=== PATIENT | female | born 1930 | race Caucasian/White ===

== ENCOUNTER 2017-05-03 14:46 | Inpatient (IN) | payer MEDICARE, OTHER ==
[~2017-05-03] VITALS: Ht 165.1 cm; Wt 77.6 kg
[2017-05-03 15:42] LABS: BASO % 0.3 % (0.0-2.0); EOS # 0.1 (0.0-0.7); GRAN # 8.6 (1.4-6.5); GRAN % 74.6 % (42.2-75.2); HEMATOCRIT 36.1 % (37.0-47.0); HEMOGLOBIN 12.2 g/dl (12.5-16.0); LYMPH # 1.9 (1.2-3.4); LYMPH % 16.7 % (20.0-51.0); MEAN CELL VOLUME 91 fl (80.0-100.0); MEAN CORPUSCULAR HEMOGLOBIN 31 pg (27.0-31.0); MEAN CORPUSCULAR HGB CONC 34 g/dl (33.0-37.0); MEAN PLATELET VOLUME 11.3 fl (7.4-10.4); MONO # 0.8 (0.1-0.6); MONO % 6.8 % (1.7-9.3); PLATELET COUNT 175 K/mm3 (130-400); RED BLOOD COUNT 3.99 M/mm3 (4.10-5.30); REDCELL DISTRIBUTION WIDTH-CV 13.2 % (11.5-14.5)
[2017-05-03 15:53] LABS: BILIRUBIN,TOTAL 0.6 mg/dL (0.0-1.0); CALCIUM 10.1 mg/dL (8.4-10.2); CREATININE, serum 1.27 mg/dL (0.52-1.25); POTASSIUM 4.8 mmol/L (3.4-5.0); TOTAL PROTEIN 7.2 gm/dL (6.4-8.2)
[2017-05-03 16:20] LABS: PROTHROMBIN TIME 35.4 SECONDS (9.7-12.8)
[2017-05-03] MEDS ORDERED: TENORMIN 5050 MG/TAB PO (17:16)
[2017-05-03] MEDS ORDERED: BUTRANS15 MCG/HR TD (17:16)
[2017-05-03] MEDS ORDERED: LUTEIN20 M1 PO (17:16)
[2017-05-03] MEDS ORDERED: ZOCOR 40MG40 MG PO (17:17)
[2017-05-03] MEDS ORDERED: ZETIA 10MG TAB10 MG PO (17:17)
[2017-05-03] MEDS ORDERED: CELEBREX 200MG200 MG PO (17:18)
[2017-05-03] MEDS ORDERED: CALCIUM CARBON650 M2 (17:18)
[2017-05-03] MEDS ORDERED: LASIX 40MG TABL40 MG PO (17:18)
[2017-05-03] MEDS ORDERED: COUMADIN 5MG5 MG/TAB PO (17:19)
[2017-05-03] MEDS ORDERED: COUMADIN 22.5 MG/TAB (17:19)
[2017-05-03] MEDS ORDERED: PRILOSEC 20MG20 MG PO (17:20)
[2017-05-03] MEDS ORDERED: ALDACTONE 25MG25 M1 PO (17:20)
[2017-05-03] MEDS ORDERED: NORCO 325 MG-51 TAB PO (17:21)
[2017-05-03] MEDS ORDERED: MULTI VITAMINS1 TAB PO (17:21)
[2017-05-03] MEDS ORDERED: CLARISPRAY9.9 ML NS (17:22)
[2017-05-03] MEDS ORDERED: PRINIVIL20 MG PO (17:23)
[2017-05-03] MEDS ORDERED: KLONOPIN 0.5MG0.5 MG PO (17:23)
[2017-05-03] MEDS ORDERED: ATROVENTNS0.03% NS (17:23)
[2017-05-03] MEDS ORDERED: PROBIOTIC GOLD1 EACH PO (17:24)
[2017-05-03] MEDS ORDERED: MIRALAX PA17 GM/Dose PO (17:24)
[2017-05-03] MEDS ORDERED: KRILL OIL 5001 EACH PO (17:27)
[2017-05-03] MEDS ORDERED: MOVE FREE PO (17:28)
[2017-05-03 17:47] LABS: PRE ALBUMIN 30.2 mg/dL (17.6-36.0)
[2017-05-03 18:18] VITALS: BP 117/75; PULSE 81; TEMP 97.9
[2017-05-03 20:00] VITALS: BP 127/64; PULSE 81; TEMP 99.1
[2017-05-04] VITALS (12 sets, daily range): BP systolic 93–118; BP diastolic 42–83; PULSE 63–102; TEMP 97.4–98.6
[2017-05-04 06:55] LABS: BASO % 0.2 % (0.0-2.0); CALCIUM 9.5 mg/dL (8.4-10.2); CREATININE, serum 1.28 mg/dL (0.52-1.25); EOS % 0.4 % (0-4.0); GRAN # 6.3 (1.4-6.5); GRAN % 63.4 % (42.2-75.2); LYMPH # 2.5 (1.2-3.4); LYMPH % 24.5 % (20.0-51.0); MEAN CELL VOLUME 91 fl (80.0-100.0); MEAN CORPUSCULAR HGB CONC 34 g/dl (33.0-37.0); MEAN PLATELET VOLUME 11.3 fl (7.4-10.4); MONO # 1.1 (0.1-0.6); MONO % 11.1 % (1.7-9.3); PLATELET COUNT 180 K/mm3 (130-400); POTASSIUM 4.1 mmol/L (3.4-5.0); RED BLOOD COUNT 3.59 M/mm3 (4.10-5.30); REDCELL DISTRIBUTION WIDTH-CV 13.2 % (11.5-14.5)
[2017-05-04 07:00] LABS: INR 1.9 (0.8-3.0); PROTHROMBIN TIME 22.7 SECONDS (9.7-12.8)
[2017-05-04 07:11] LABS: HEMATOCRIT 32.5 % (37.0-47.0); HEMOGLOBIN 10.9 g/dl (12.5-16.0); MEAN CORPUSCULAR HEMOGLOBIN 30 pg (27.0-31.0)
[2017-05-04 09:06] LABS: COLLECTION METHOD CATHETER
[2017-05-04 09:14] LABS: PH 6 (5-8); SQUAMOUS EPITHELIAL None Seen /hpf; URINE APPEARANCE Clear; URINE BACTERIA None Seen /hpf; URINE BILIRUBIN Negative (NEGATIVE); URINE BLOOD 3+ (NEGATIVE); URINE COLOR Yellow; URINE GLUCOSE Negative (NEGATIVE); URINE KETONE Negative (NEGATIVE); URINE LEUKOCYTE ESTERASE Negative (NEGATIVE); URINE NITRATE Negative (NEGATIVE); URINE PROTEIN(semi-quant) Negative (NEGATIVE); URINE RBC 20-50 /hpf; URINE UROBILINOGEN Negative (NEGATIVE)
[2017-05-05 00:58] VITALS: BP 122/62; PULSE 82; TEMP 98.4
[2017-05-05 04:10] VITALS: BP 114/63; PULSE 81; TEMP 98.2
[2017-05-05 07:26] LABS: BASO % 0.1 % (0.0-2.0); EOS % 0.1 % (0-4.0); GRAN # 10.4 (1.4-6.5); LYMPH # 1.5 (1.2-3.4); LYMPH % 11.2 % (20.0-51.0); MEAN CELL VOLUME 91 fl (80.0-100.0); MEAN CORPUSCULAR HGB CONC 34 g/dl (33.0-37.0); MONO # 1.2 (0.1-0.6); MONO % 8.9 % (1.7-9.3); PLATELET COUNT 163 K/mm3 (130-400); RED BLOOD COUNT 3.12 M/mm3 (4.10-5.30); REDCELL DISTRIBUTION WIDTH-CV 13.3 % (11.5-14.5)
[2017-05-05 07:36] LABS: CALCIUM 9.4 mg/dL (8.4-10.2); CREATININE, serum 1.34 mg/dL (0.52-1.25); MAGNESIUM 1.3 mg/dL (1.6-2.3); POTASSIUM 4.8 mmol/L (3.4-5.0)
[2017-05-05 07:37] LABS: HEMATOCRIT 28.5 % (37.0-47.0); HEMOGLOBIN 9.7 g/dl (12.5-16.0); MEAN CORPUSCULAR HEMOGLOBIN 31 pg (27.0-31.0)
[2017-05-05 08:00] VITALS: BP 111/49; PULSE 99; TEMP 98.4
[2017-05-05 13:49] VITALS: BP 111/48; PULSE 86; TEMP 98.4
[2017-05-05 18:10] VITALS: BP 137/55; PULSE 102; TEMP 98.8
[2017-05-06] VITALS (8 sets, daily range): BP systolic 78–146; BP diastolic 44–80; PULSE 64–111; TEMP 97.7–99.1
[2017-05-06 07:37] LABS: MEAN CELL VOLUME 92 fl (80.0-100.0); MEAN CORPUSCULAR HGB CONC 33 g/dl (33.0-37.0); MEAN PLATELET VOLUME 11.6 fl (7.4-10.4); PLATELET COUNT 165 K/mm3 (130-400); RED BLOOD COUNT 2.76 M/mm3 (4.10-5.30); REDCELL DISTRIBUTION WIDTH-CV 13.7 % (11.5-14.5)
[2017-05-06 07:42] LABS: HEMATOCRIT 25.5 % (37.0-47.0); HEMOGLOBIN 8.5 g/dl (12.5-16.0); INR 1.2 (0.8-3.0); MEAN CORPUSCULAR HEMOGLOBIN 31 pg (27.0-31.0); PROTHROMBIN TIME 13.4 SECONDS (9.7-12.8)
[2017-05-06 07:48] LABS: CALCIUM 9.6 mg/dL (8.4-10.2); CREATININE, serum 1.27 mg/dL (0.52-1.25); MAGNESIUM 2.2 mg/dL (1.6-2.3); POTASSIUM 4.7 mmol/L (3.4-5.0)
[2017-05-06 11:09] LABS: BAND 27 % (0-10); LYMPHOCYTE 23 % (20.0-51.0); NEUTROPHILS 50 % (42.0-75.2); OVALOCYTES 1+; PLATELET ESTIMATE NORMAL (NORMAL)
[2017-05-07 02:18] VITALS: BP 127/64; PULSE 100; TEMP 98.5
[2017-05-07 06:01] VITALS: BP 131/86; PULSE 129; TEMP 98.6
[2017-05-07 07:21] LABS: MEAN CELL VOLUME 93 fl (80.0-100.0); MEAN CORPUSCULAR HGB CONC 32 g/dl (33.0-37.0); MEAN PLATELET VOLUME 11.2 fl (7.4-10.4); PLATELET COUNT 179 K/mm3 (130-400); RED BLOOD COUNT 2.72 M/mm3 (4.10-5.30)
[2017-05-07 07:23] LABS: HEMATOCRIT 25.4 % (37.0-47.0); HEMOGLOBIN 8.2 g/dl (12.5-16.0); MEAN CORPUSCULAR HEMOGLOBIN 30 pg (27.0-31.0)
[2017-05-07 07:25] LABS: CALCIUM 9.4 mg/dL (8.4-10.2); CREATININE, serum 1.15 mg/dL (0.52-1.25); POTASSIUM 4.4 mmol/L (3.4-5.0)
[2017-05-07 08:22] LABS: INR 1.3 (0.8-3.0); PROTHROMBIN TIME 15.3 SECONDS (9.7-12.8)
[2017-05-07 09:08] VITALS: BP 114/70; PULSE 138; TEMP 97.9
[2017-05-07 09:36] LABS: BAND 20 % (0-10); BASOPHIL 1 % (0-2); EOSINOPHIL 1 % (0-4); HYPOCHROMIA 2+; LYMPHOCYTE 10 % (20.0-51.0); NEUTROPHILS 67 % (42.0-75.2); PLATELET ESTIMATE NORMAL (NORMAL)
[2017-05-07 13:32] VITALS: BP 116/42; PULSE 87; TEMP 98.7
[2017-05-07 17:35] VITALS: BP 120/47; PULSE 74; TEMP 99
[2017-05-07 21:13] VITALS: BP 120/51; PULSE 73; TEMP 98.5
[2017-05-08 01:40] VITALS: BP 128/68; PULSE 97; TEMP 98.5
[2017-05-08 05:18] VITALS: BP 113/52; PULSE 86; TEMP 98.2
[2017-05-08 06:54] LABS: INR 1.4 (0.8-3.0); PROTHROMBIN TIME 16.5 SECONDS (9.7-12.8)
[2017-05-08 10:00] VITALS: BP 114/54; PULSE 85; TEMP 99.4
[2017-05-08] MEDS ORDERED: DULCOLAX S10 MG/SUPP RC (11:47)
[2017-05-08] MEDS ORDERED: GOOD NEIGH1200 MG/15 PO (11:48)
[2017-05-08] MEDS ORDERED: SENOKOT S 50 MG1 TAB PO (11:48)
[2017-05-08 12:11] VITALS: BP 114/54; PULSE 85; TEMP 99.4
[2017-05-08] MEDS ORDERED: FERROUS SU325 MG/TAB PO (12:13)
[2017-05-08] MEDS ORDERED: VITAMIN C500 MG PO (12:14)
[2017-05-08 13:06] VITALS: BP 114/54; PULSE 85; TEMP 99.4
== END 2017-05-08 13:25 | disposition swing bed (61) | DRG 481 ==
LOC: COL.ER 14:46 → SURG 16:16
PROVIDERS: Emergency Medicine; Family Medicine; Nurse Practitioner Family; Orthopaedic Surgery Sports Medicine; Physician Assistant
PROC: 0QS606Z Reposition Right Upper Femur with Intramedullary Internal Fixation Device, Open Approach (ICD-10-PCS; principal; 2017-05-04 14:45)
DX: S72.141A Displaced intertrochanteric fracture of right femur, initial encounter for closed fracture (principal); N17.9 Acute kidney failure, unspecified; E87.1 Hypo-osmolality and hyponatremia; E78.5 Hyperlipidemia, unspecified; E83.42 Hypomagnesemia; I48.2 Chronic atrial fibrillation; G47.33 Obstructive sleep apnea (adult) (pediatric); I12.9 Hypertensive chronic kidney disease with stage 1 through stage 4 chronic kidney disease, or unspecified chronic kidney disease; N18.9 Chronic kidney disease, unspecified; D64.9 Anemia, unspecified; W01.0XXA Fall on same level from slipping, tripping and stumbling without subsequent striking against object, initial encounter; Z79.01 Long term (current) use of anticoagulants; Y92.009 Unspecified place in unspecified non-institutional (private) residence as the place of occurrence of the external cause
CPT/HCPCS: 99223-AI; 99232-AI; 99239; A9284; C1713; J0690; J1100; J1170; J1650; J2250; J2270; J2405; J2704; J3010; J3475; J7120